=== PATIENT | female | born 1930 | race Caucasian/White ===

== ENCOUNTER 2017-10-22 12:31 | Emergency (ER) | payer OTHER ==
[~2017-10-22] VITALS: Ht 160 cm; Wt 69.8 kg
[~2017-10-22 12:31] MED LIST: ACETAMINOPHEN325 M1 PO; ATIVAN0.5 MG PO; CHLORHEXIDINE118 ML TP; DEPAKOTE SPRIN125 MG PO; EXELON PATCH9.5 MG TD; HYDROCHLOROTH12.5 M1 PO; HYDROCHLOROTH12.5 M3 PO; KEPPRA250 MG PO; MELADOX3 MG PO; METOPROLOL SUC100 MG PO; NYSTATIN15 GM PO; NYSTATIN15 GM TP; POTASSIUM CHLO10 ME3 PO; RISPERDAL0.25 MG PO; SIMVASTATIN20 MG PO; SIMVASTATIN40 MG PO; TOPROL XL50 MG PO; TYLENOL 8 HOUR650 MG PO; TYLENOL REGULA325 MG PO; ZESTRIL,PRINIVI40 MG PO; ZESTRIL40 MG PO; ZOLOFT100 MG PO; ZOLOFT50 MG PO
[2017-10-22 14:26] LABS: BASOPHIL (%) 0.2 % (0-1); EOSINOPHIL (%) 0.9 % (0-5); EOSINOPHIL COUNT 0.1 K/uL (0-0.3); HEMATOCRIT 41.3 % (36.0-46.0); HEMOGLOBIN 13.5 G/DL (11.9-15.5); IMMATURE GRANULOCYTE (%) 0.2 % (0.0-0.7); LYMPHOCYTE (%) 27.3 % (15-42); LYMPHOCYTE COUNT 1.5 K/uL (1.0-2.8); MCH 29.3 PG (29.0-34.0); MCHC 32.7 G/DL (30.0-36.0); MCV 89.8 FL (83-99); MONOCYTE (%) 12.6 % (3-12); MONOCYTE COUNT 0.7 K/uL (0-0.8); NEUTROPHIL (%) 58.8 % (45-76); NEUTROPHIL COUNT 3.3 K/uL (1.8-6.4); PLATELET COUNT 242 K/uL (156-360); RBC DIS.WIDTH-CV 15.9 % (11.8-14.6); WHITE BLOOD COUNT 5.6 K/uL (4.1-10.2)
[2017-10-22 14:35] LABS: PTT 32.4 SEC (25-37)
[2017-10-22 14:36] LABS: ALBUMIN 3.5 g/dL (3.2-4.8); CHLORIDE 108 mEq/L (99-109); SODIUM 146 mEq/L (136-147)
[2017-10-22 14:38] LABS: GLUCOSE 110 mg/dL (70-99); TOTAL PROTEIN 6.6 g/dL (6.4-8.3)
[2017-10-22 14:40] LABS: TOTAL BILIRUBIN 1.1 mg/dL (0.0-1.0)
[2017-10-22 14:42] LABS: ALKALINE PHOSPHATASE 122 IU/L (3-129); CREATININE 0.5 mg/dL (0.6-1.3); GFR ESTIMATE (CALCULATED) > 59 mL/min/
[2017-10-22 14:43] LABS: UREA NITROGEN (BUN) 15 mg/dL (9-23)
[2017-10-22 14:44] LABS: AST (GOT) 85 IU/L (2-34)
[2017-10-22 14:45] LABS: ALT (GPT) 148 IU/L (3-49)
[2017-10-22 14:48] LABS: TROP-I INTERPRETATION NEGATIVE; TROPONIN-I < 0.01 ng/mL (0.0-0.30)
[2017-10-22 15:49] LABS: VALPROIC ACID (DEPAKOTE) < 10.0 MCG/ML (50-100)
[2017-10-22 16:14] LABS: APPEARANCE CLEAR ((CLEAR)); BILIRUBIN SMALL; BLOOD NEGATIVE; COLOR AMBER ((YELLOW)); GLUCOSE (STRIP) NEGATIVE; KETONES 5; LEUKOCYTES NEGATIVE; NITRITE NEGATIVE; PROTEIN (STRIP) NEGATIVE; SPECIFIC GRAVITY 1.026 (1.000-1.030); UCUL ADDED? NO
[2017-10-22 19:50] VITALS: BP 174/110
== END 2017-10-22 20:05 ==
LOC: EME 12:31
PROVIDERS: Emergency Medicine
DX: K59.00 Constipation, unspecified (principal); R00.0 Tachycardia, unspecified; I45.10 Unspecified right bundle-branch block; R94.31 Abnormal electrocardiogram [ECG] [EKG]; I10 Essential (primary) hypertension; K21.9 Gastro-esophageal reflux disease without esophagitis; E78.5 Hyperlipidemia, unspecified; R56.9 Unspecified convulsions; N32.81 Overactive bladder; M19.90 Unspecified osteoarthritis, unspecified site; F03.90 Unspecified dementia, unspecified severity, without behavioral disturbance, psychotic disturbance, mood disturbance, and anxiety; F41.9 Anxiety disorder, unspecified; F32.9 Major depressive disorder, single episode, unspecified
CPT/HCPCS: 74022; 80053; 80164; 81003; 83735; 84484; 85025; 85610; 85730; 93005; 99281; 99285